=== PATIENT | male | born 1975 | race Caucasian/White ===

== ENCOUNTER 2020-08-06 20:38 | Emergency (ER) | payer BC ==
[2020-08-06] MEDS ORDERED: Lidocaine 1% w/Epinephrine 1:100K 20 ML VIAL ONE (20:44)
== END 2020-08-06 21:06 | disposition home or self-care (01) ==
LOC: BURERS 20:38
DX: I83.892 Varicose veins of left lower extremity with other complications (principal); E66.9 Obesity, unspecified
CPT/HCPCS: 12001

== ENCOUNTER 2023-10-18 11:10 | Emergency (ER) | payer BC | END 2023-10-18 13:26 | disposition home or self-care (01) | LOC: BURERS 11:10 | DX: F30.10 Manic episode without psychotic symptoms, unspecified (principal) | CPT/HCPCS: 99284 ==